=== PATIENT | male | born 1985 | race Two or more races ===

== ENCOUNTER 2023-03-18 07:33 | Emergency (ER) | payer BC ==
[~2023-03-18] VITALS: Ht 172.7 cm; Wt 86.2 kg
[2023-03-18] MEDS ORDERED: ZESTRIL2.5 MG PO (07:56)
[2023-03-18] MEDS ORDERED: LAMOTRIGINE25 M1 PO (07:57)
[2023-03-18] MEDS ORDERED: CEFADROXIL500 MG PO (09:12)
== END 2023-03-18 09:33 | disposition home or self-care (01) ==
LOC: ER 07:33
DX: S01.112A Laceration without foreign body of left eyelid and periocular area, initial encounter (principal); W05.2XXA Fall from non-moving motorized mobility scooter, initial encounter; Y93.89 Activity, other specified; Y92.89 Other specified places as the place of occurrence of the external cause; Y99.9 Unspecified external cause status; Z88.0 Allergy status to penicillin